=== PATIENT | female | born 1995 | race Caucasian/White ===

== ENCOUNTER 2017-12-31 09:36 | Outpatient (CLI) | payer MEDICAID, SELFPAY ==
[2017-12-31 11:24] LABS: Absolute Basophil Count 0.01 k/cumm (0.0-0.2); Absolute Lymphocyte Count 2.05 k/cumm (1.2-3.4); Absolute Monocyte Count 0.34 k/cumm (0.11-0.7); Absolute Neutrophil Count 4.35 k/cumm (1.2-6.7); Basophils % 0.1; Eosinophils % 1.5; HCT 37.9 % (36.0-46.0); HGB 12.8 g/dL (12.0-15.5); Lymphocytes % 29.9; Mean Corp. HGB Concentration 33.8 g/dL (32.0-36.0); Mean Corpuscular Hemoglobin 29.4 pg (27.0-33.0); Mean Corpuscular Volume 86.9 fL (80-95); Mean Platelet Volume 10.1 fL (8.0-11.0); Neutrophils % 63.5; Platelet Count 257 x1000/uL (130-400); RBC 4.36 m/cumm (4.00-5.20); RBC Distribution Width 12.5 % (11.7-14.6); White Blood Cell Count 6.85 k/cumm (4.4-10.8)
[2017-12-31 11:26] LABS: ALT 14 U/L (12-78); AST 10 U/L (15-37); Albumin 3.6 g/dL (3.4-5.0); Alkaline Phosphatase 87 U/L (46-116); Anion Gap 8.9 mmol/L (3-11); BUN 16 mg/dL (7-18); Bilirubin, Total 0.3 mg/dL (0.2-1.0); CO2 27.1 mmol/L (21.0-32.0); Chloride 103 mmol/L (98-107); Glucose 98 mg/dL (70-100); Potassium 4.3 mmol/L (3.5-5.1); Sodium 139 mmol/L (136-145); Total Protein 7.4 g/dL (6.4-8.2)
== END 2017-12-31 09:56 ==
PROVIDERS: PCP Family Medicine
DX: M54.5 Low back pain (principal); K21.9 Gastro-esophageal reflux disease without esophagitis; N23 Unspecified renal colic
CPT/HCPCS: 36415; 80053; 85025

== ENCOUNTER 2018-01-05 14:07 | Outpatient (CLI) | payer MEDICAID, SELFPAY ==
--- NOTE | 2018-01-05 15:48 | DI.US_ITS ---
SYMPTOM/DIAGNOSIS: INCREASED INTENSITY OF FLANK PAIN R10.9, 689.29 RENAL ULTRASOUND: Routine examination. Comparison 04/13/13. The right kidney measures 13.3 cm long. No renal masses, calculus or obstruction seen. There is blood flow to the right kidney. The left kidney measures 9.8 cm long. There does appear to be a renal cortical thinning. There are a few echogenic shadowing foci seen within the left kidney. The largest is in the superior left kidney and measures 1.4 cm. There is blood flow seen to the left kidney. No hydronephrosis or solid renal masses present. The pre-void urinary bladder volume is 100 cc. Both ureteral jets were visualized. The bladder wall appears smooth. No intraluminal masses are present. The patient completely emptied upon voiding. IMPRESSION: Echogenic foci seen within the left kidney suspicious for a nonobstructing left renal calculi 2. Mild left renal cortical atrophy.
== END 2018-01-05 14:27 ==
PROVIDERS: PCP Family Medicine
DX: R10.32 Left lower quadrant pain (principal); N20.0 Calculus of kidney
CPT/HCPCS: 76770

== ENCOUNTER 2021-04-23 19:00 | Outpatient (CLI) | payer MEDICAID, SELFPAY ==
--- NOTE | 2021-04-23 | DI.RAD_ITS ---
Exam(s) XR KNEE LT 3V AP,LAT,KRIS EXAM: XR KNEE LT 3V AP,LAT,KRIS CLINICAL HISTORY: KNEE PAIN LEFT TECHNIQUE: COMPARISON: CR RIGHT KNEE 3 VIEWS from 10/31/2013 FINDINGS: Three views were obtained. There is no evidence of acute fracture or dislocation. IMPRESSION: RADIATION DOSE DELIVERED: Total DLP
--- NOTE | 2021-04-23 20:08 | DI.VRAD_ITS ---
PROCEDURE INFORMATION: Exam: XR Left Knee Exam date and time: 04/23/2021 6:58 PM Age: 25 years old Clinical indication: Left; Patient HX: Knee pain after twisting TECHNIQUE: Imaging protocol: XR Left knee. Views: 3 views. Total images: 3 COMPARISON: No relevant prior studies available. FINDINGS: Bones/joints: No acute fracture or malalignment. Soft tissues: Normal. Other findings: There is a suprapatellar knee effusion. IMPRESSION: 1. No acute fracture or malalignment. 2. Small knee effusion. Dictated and Authenticated by: Rashi Barrios MD. Ordering:KIARA HOLLY MD
== END 2021-04-23 19:20 ==
PROVIDERS: PCP Nurse Practitioner; Visit Provider Nurse Practitioner Family
DX: M25.562 Pain in left knee (principal)
CPT/HCPCS: 73562

== ENCOUNTER 2021-12-17 18:21 | Outpatient (REF) | payer MEDICAID, SELFPAY | END 2021-12-17 18:22 | disposition home or self-care (01) | LOC: LBN 18:21 | PROVIDERS: PCP Nurse Practitioner; Visit Provider Nurse Practitioner Family | DX: J02.9 Acute pharyngitis, unspecified (principal) | CPT/HCPCS: 87070 ==

== ENCOUNTER 2023-11-13 08:36 | Emergency (ER) | payer MEDICAID, SELFPAY ==
[2023-11-13 08:56] VITALS: BP 143/98; PULSE 82; RESP 18; TEMP 36.7; O2SAT 99
--- NOTE | 2023-11-13 09:00 | DI.US_ITS ---
Exam(s) US ABDOMEN LIMITED EXAM: US ABDOMEN LIMITED CLINICAL HISTORY: RUQ U/S - bilious vomiting 4 hrs s/p PO intake TECHNIQUE: Ultrasound abdomen performed using standard protocol. COMPARISON: US RENAL ULTRASOUND(P) from 04/13/2013 FINDINGS: Exam limited by patient body habitus. LIVER: Normal size and echogenicity. No focal liver lesions are seen. GALLBLADDER: Single 9 millimeter mobile gallstone. No evidence of wall thickening. No pericholecysti c fluid identified. ALDRIDGE'S SIGN: Negative. BILIARY SYSTEM: No intrahepatic or extrahepatic biliary ductal dilation. Right kidney: Suboptimally visualized. No gross evidence of renal calculi. No evidence of hydronephr osis. No renal mass or cyst identified. PANCREAS: Normal where visualized. Partially obscured. SPLEEN: Not enlarged. ABDOMINAL AORTA AND IVC: Visualized portions normal caliber. ASCITES: None seen. IMPRESSION: 9 millimeter mobile gallstone. No evidence of acute cholecystitis. No biliary dilatation. DATA REPOSITORY:
[2023-11-13 09:22] LABS: Abs Immature Grans 0.02 10^3/uL (0.0-0.06); Absolute Basophil Count 0.01 10^3/uL (0.0-0.2); Absolute Eosinophil Count 0.19 10^3/uL (0.0-0.7); Absolute Lymphocyte Count 1.89 10^3/uL (1.2-3.4); Absolute Monocyte Count 0.28 10^3/uL (0.1-0.8); Absolute Neutrophil Count 5.58 10^3/uL (1.2-6.7); Basophils % 0.1 %; Eosinophils % 2.4 %; HCT 36.8 % (36.0-46.0); HGB 12.4 g/dL (11.2-15.7); Immature Grans % 0.3 %; Lymphocytes % 23.7 %; MCH 29.4 pg (27.0-33.0); MCHC 33.7 % (32.0-36.0); MCV 87 fL (80-95); MPV 9.4 fL (8.0-11.0); Monocytes % 3.5 %; Platelet Count 232 10^3/uL (130-400); RBC 4.22 10^6/uL (3.93-5.22); RDW 12.8 % (11.7-14.6); RDW-SD 40.5 fL; WBC 7.97 10^3/uL (4.4-10.8)
[2023-11-13 09:33] VITALS: TEMP 36.5
--- NOTE | 2023-11-13 09:36 | W.ED.GENAD ---
Discharge Plan Disposition Patient Disposition: Home Condition: Stable Discharge Details Clinical Impression: Gastritis, Biliary colic Primary Care Provider: Tarun Valdez ED Provider: Bronson Montgomery Home Meds and New Rx's Prescriptions: New ondansetron 4 mg tablet,disintegrating 4 mg PO Q8H PRN PRNQty: 30 0RF No Action ParaGard T 380A 380 square mm intrauterine device 1 device intrauterine ONCE Rx Instructions: as a single dose Discharge Instructions Instructions: Ondansetron, Gastritis ED, Gallstones ED Additional Instructions: You were seen in the emergency department for your ongoing acute on chronic biliary colic with some isolated dry heaving or vomiting, there is a 9 mm gallstone that is mobile in your gallbladder that may be transiently obstructing the gallbladder but your labs are normal for any acute infection or damage. I am referring you to the surgery practice to discuss elective gallbladder removal, you have known chronic GERD, please take an [id number] famotidine 1 tablet twice per day for about 2 to 4 weeks for a trial of relief, you may need to talk to the surgery practice about scheduling an endoscopy as well. Please return to the emergency department for any intractable nausea or vomiting, severe increase in right upper quadrant abdominal pain especially with fever, weakness. Referrals: [facility] [Provider Group] Tarun Valdez, MEDICAL REFERRAL COORDINATOR [Primary Care Provider] - Discharge Data Discharge Date/Time-TO BE ENTERED AT DEPARTURE: 11/13/23 10:37 HPI General Date/Time Provider Initiated Documentation: 11/13/23 09:00. HPI Narrative: 27 year-old female presents to ED today by POV/ambulating with her with a chief complaint of abdominal pain, intermittent nausea/dry heaving/vomiting about 4 hours after PO intake, and chronic GERD for 9 years. States the intermittent vomiting has been worse for the past 2 weeks. Quality described as no abdominal pain, just feels nauseous and having reflux after meals and occasional vomiting hours after eating, no radiation to black/bloody stools, chest pain, shortness of breath, hematemesis, intractable nausea/vomiting, fever. Severity is described as mild to moderate. Palliating factors include takes TUMS. Provoking factors include eating. Events leading up to the incident/Associated Symptoms: Patient has not sought PCP care for this, no famotidine or PPIs, not sought EGD. Patient not anticoagulated. Related Data Home Medications ?Medication ?Instructions ?Recorded ?Confirmed copper 380 square mm intrauterine 1 device intrauterine ONCE 11/13/23 11/13/23 device (ParaGard T 380A) ondansetron 4 mg disintegrating 4 mg PO Q8H PRN PRN #30 tabs 11/13/23 tablet Previous Rx's ?Medication ?Instructions ?Recorded ondansetron 4 mg disintegrating 4 mg PO Q8H PRN PRN #30 tabs 11/13/23 tablet Allergies Allergy/AdvReac Type Severity Reaction Status Date / Time ciprofloxacin (From Cipro) Allergy Mild Itching Verified 11/13/23 08:58 Sulfa (Sulfonamide AdvReac Mild Vomiting Verified 11/13/23 08:58 Antibiotics) General Stated Complaint: Abd Prob MONTRELL: 4 Review of Systems All systems reviewed & are unremarkable except as noted in HPI and below Exam Narrative Exam Narrative: GENERAL APPEARANCE: Well-nourished, non-toxic, awake and alert, atraumatic, no acute distress. SKIN: Warm, pink, dry, intact, without rashes/lesions/ulcerations. HEAD: Normocephalic, atraumatic, normal hair distribution for gender/age. EYES: Normal conjunctiva, no exudates on lids/lashes. ENT: Nares patent, no circumoral cyanosis, no facial swelling NECK: Supple, trachea midline, painless cervical ROM. LUNGS/CHEST: Lungs CTA bilaterally, non-labored respirations, normal A/P diameter, symmetrical expansion, no chest wall deformity HEART (CV/PV): Regular rate and rhythm without murmur, no peripheral edema, no JVD. ABDOMEN: Soft, non-distended, no guarding. MSK: Normal ROM, no swelling/deformity to bilateral UEs or LEs, moving all extremities without weakness, no cyanosis, spine midline without tenderness, normal curvature. NEURO: Mental Status AAOx4 - alert to person, place, time, events No facial droop, no forehead involvement. Motor: No focal weakness - strength 5/5 in bilateral UEs and LEs, proximal and distal, symmetric. Sensory: sensation intact to light touch globally. Gait normal: patient ambulated without ataxia into ED room. PSYCH: euthymic, cooperative, pleasant, appropriate speech Course Vital Signs Vital signs: Vital Signs Temperature 36.7 C 11/13/23 08:56 Pulse 82 09/12/24 08:56 Respiratory Rate 18 11/13/23 08:56 Blood Pressure 143/98 H 11/13/23 08:56 Pulse Oximetry 99 11/13/23 08:56 Temperature 36.7 C 11/13/23 08:56 Temperature Source Oral 11/13/23 08:56 Pulse 82 11/13/23 08:56 Respiratory Rate 18 11/13/23 08:56 Blood Pressure 143/98 H 11/13/23 08:56 Blood Pressure Position Sitting 11/13/23 08:56 Pulse Oximetry 99 11/13/23 08:56 Oxygen Delivery Method Room Air 11/13/23 08:56 Oxygen Flow Rate 0 11/13/23 08:56 Pain Level 0 11/13/23 08:56 Lab/Test Results Lab/Test Results: Laboratory Tests Range/Units 11/13/23 09:12 WBC (4.4-10.8) 10^3/uL 7.97 RBC (3.93-5.22) 10^6/uL 4.22 Hgb (11.2-15.7) g/dL 12.4 Hct (36.0-46.0) % 36.8 MCV (80-95) fL 87 MCH (27.0-33.0) pg 29.4 MCHC (32.0-36.0) % 33.7 RDW (11.7-14.6) % 12.8 Plt Count (130-400) 10^3/uL 232 MPV (8.0-11.0) fL 9.4 Immature Gran % % 0.3 Neutrophils % % 70.0 Lymphocytes % % 23.7 Monocytes % % 3.5 Eosinophils % % 2.4 Basophils % % 0.1 Nucleated RBC % (0.0-0.3) % 0.0 Absolute Neutrophils (1.2-6.7) 10^3/uL 5.58 Absolute Lymphocytes (1.2-3.4) 10^3/uL 1.89 Absolute Monocytes (0.1-0.8) 10^3/uL 0.28 Absolute Eosinophils (0.0-0.7) 10^3/uL 0.19 Absolute Basophils (0.0-0.2) 10^3/uL 0.01 Medical Decision Making This dictation utilizes [id number] dictation software and may contain unedited grammatical errors. 27 year-old female presents to ED today by POV/ambulating with her with a chief complaint of abdominal pain, intermittent nausea/dry heaving/vomiting about 4 hours after PO intake, and chronic GERD for 9 years. States the intermittent vomiting has been worse for the past 2 weeks. Quality described as no abdominal pain, just feels nauseous and having reflux after meals and occasional vomiting hours after eating, no radiation to black/bloody stools, chest pain, shortness of breath, hematemesis, intractable nausea/vomiting, fever. Severity is described as mild to moderate. Palliating factors include takes TUMS. Provoking factors include eating. Events leading up to the incident/Associated Symptoms: Patient has not sought PCP care for this, no famotidine or PPIs, not sought EGD. Patients' medical history: GERD. Family and social history: noncontributory. Pertinent exam findings / vital signs include no abdominal tenderness, nontoxic vitals, benign cardiopulmonary status. Differential / pathologies of concern include gastritis, biliary colic, gallstones, PUD. Diagnostic studies of: -CBC, CMP, lipase, US ABD right upper quadrant laboratory workup is negative. -laboratory work up negative (See below) -US ABD RUQ shows 9mm gallstone, possible intermittent colic source Interventions of: -Given prescription of ondansetron, recommend outpatient follow-up with general surgery practice for possible EGD or elective cholecystectomy, recommend OTC famotidine for GERD. ED Course/Assessment/Plan: 27-year-old female presents with 9 years of GERD, states intermittent dry heaves that seem to be worse for the past 2 weeks, this is suspicious for gallstone pathology so an ultrasound was performed which shows a 9 mm mobile gallstone, this is not likely occluding the biliary duct at this time and I do recommend she follow-up with general surgery for discussion of elective cholecystectomy if she keeps having symptoms, recommend she trial famotidine for her GERD as she has not tried any H2 dara or PPI despite the length of illness, provided ondansetron for intermittent nausea as needed, strict turn criteria for worsening abdominal pain with fever, intractable nausea or vomiting. Findings not consistent with choledocholithiasis, cholangiitis, cholecystitis, booerhave syndrome, kiana anderson tear, intractable nausea/vomiting. Disposition of Gastritis, Biliary Colic. Patient verbalized understanding of the plan and return to ED criteria and engaged in shared decision making. Medical Records Medical records reviewed: Yes I reviewed the patient's medical records. Imaging Data Radiologic Study: Attestation: I personally reviewed and interpreted this imaging study as follows: Imaging: Ultrasound Radiologist's impression: EXAM: US ABDOMEN LIMITED CLINICAL HISTORY: RUQ U/S - bilious vomiting 4 hrs s/p PO intake TECHNIQUE: Ultrasound abdomen performed using standard protocol. COMPARISON: US RENAL ULTRASOUND(P) from 04/13/2013 FINDINGS: Exam limited by patient body habitus. LIVER: Normal size and echogenicity. No focal liver lesions are seen. GALLBLADDER: Single 9 millimeter mobile gallstone. No evidence of wall thickening. No pericholecystic fluid identified. ALDRIDGE'S SIGN: Negative. BILIARY SYSTEM: No intrahepatic or extrahepatic biliary ductal dilation. Right kidney: Suboptimally visualized. No gross evidence of renal calculi. No evidence of hydronephrosis. No renal mass or cyst identified. PANCREAS: Normal where visualized. Partially obscured. SPLEEN: Not enlarged. ABDOMINAL AORTA AND IVC: Visualized portions normal caliber. ASCITES: None seen. IMPRESSION: 9 millimeter mobile gallstone. No evidence of acute cholecystitis. No biliary dilatation. Lab Data Lab results reviewed: Yes I reviewed the patient's lab results. Labs: Laboratory Tests Range/Units 11/13/23 09:12 WBC (4.4-10.8) 10^3/uL 7.97 RBC (3.93-5.22) 10^6/uL 4.22 Hgb (11.2-15.7) g/dL 12.4 Hct (36.0-46.0) % 36.8 MCV (80-95) fL 87 MCH (27.0-33.0) pg 29.4 MCHC (32.0-36.0) % 33.7 RDW (11.7-14.6) % 12.8 Plt Count (130-400) 10^3/uL 232 MPV (8.0-11.0) fL 9.4 Immature Gran % % 0.3 Neutrophils % % 70.0 Lymphocytes % % 23.7 Monocytes % % 3.5 Eosinophils % % 2.4 Basophils % % 0.1 Nucleated RBC % (0.0-0.3) % 0.0 Absolute Neutrophils (1.2-6.7) 10^3/uL 5.58 Absolute Lymphocytes (1.2-3.4) 10^3/uL 1.89 Absolute Monocytes (0.1-0.8) 10^3/uL 0.28 Absolute Eosinophils (0.0-0.7) 10^3/uL 0.19 Absolute Basophils (0.0-0.2) 10^3/uL 0.01 Sodium (136-145) mmol/L 138 Potassium (3.5-5.1) mmol/L 3.8 Chloride (98-107) mmol/L 105 Carbon Dioxide (21.0-32.0) mmol/L 26.4 Anion Gap (3-11) mmol/L 6.6 BUN (7-18) mg/dL 15 Creatinine (0.55-1.02) mg/dL 0.9 Est GFR (CKD-EPI 2020) (mL/min/1.73m2) 88.75 Glucose (74-106) mg/dL 123 H Calcium (8.5-10.1) mg/dL 9.1 Magnesium (1.8-2.4) mg/dL 1.8 Total Bilirubin (0.2-1.0) mg/dL 0.34 AST (15-37) U/L 11 L ALT (14-59) U/L 17 Alkaline Phosphatase (46-116) U/L 83 Total Protein (6.4-8.2) g/dL 7.5 Albumin (3.4-5.0) g/dL 3.5 Lipase (16-77) U/L 43 Quality:SDOH Health Related Social Needs: No Data to Display PFSH All Active Problems (Updated 11/13/23 @ 10:20 by LAZARUS Morgan) Biliary colic (Acute) Gastritis (Acute) (Acute) Acne (Chronic) Increased body mass index (BMI) (Chronic) History of asthma (Acute) GERD (gastroesophageal reflux disease) (Chronic) Flank pain, chronic (Chronic) Vesicoureteral reflux, unspecified or without reflux nephropathy (Acute 05/20/11) Family History Mother Asthma Depression Father , 41 Lymphoma Hypertension Brother Asthma Depression Substance abuse Maternal Grandfather , 80 Lung cancer Depression Heart disease Alcohol abuse Paternal Grandfather Hypertension Maternal Grandmother , 81 Alcohol abuse Depression Stroke Paternal Grandmother , 56 Alcohol abuse Depression Daughter No problems noted. Other History of asthma Social History Smoking/Tobacco Use Status: Former Tobacco Use Quit Date: 12/01/13 Second Hand Exposure: Yes Smoking risk assessment performed?: Yes Alcohol Intake: current Alcohol Intake frequency: holidays/special occasions only Alcohol type: wine and hard liquor Drug use: Never Substance use type: does not use Household members: significant other, family and children Housing: house Pets and animals: Yes Pets and animals: cat(s) and dog(s) Sexually active: Yes Do you think of yourself as: straight/heterosexual Current gender identity: female What is your relationship status?: How often do you talk on the phone with friends or family?: three or more times per week How often do you get together with friends or relatives?: twice per week How often do you attend baptism or advent services?: decline to answer Do you belong to any clubs or organized social groups?: no Panel score (0-1 are the most socially isolated patients): 2 What type of physical activity do you participate in: yoga Duration: 45-60 minutes/day Frequency: 3-4 times per week Yaa/Druze: None Special yaa needs: No Do you feel safe at home: Yes Do you feel safe in your relationship?: Yes
[2023-11-13 09:41] LABS: ALT 17 U/L (14-59); AST 11 U/L (15-37); Albumin 3.5 g/dL (3.4-5.0); Alkaline Phosphatase 83 U/L (46-116); Anion Gap 6.6 mmol/L (3-11); BUN 15 mg/dL (7-18); Bilirubin, Total 0.34 mg/dL (0.2-1.0); CO2 26.4 mmol/L (21.0-32.0); CREATININE 0.9 mg/dL (0.55-1.02); Calcium 9.1 mg/dL (8.5-10.1); Chloride 105 mmol/L (98-107); Estimated GFR 88.75 (mL/min/1.73m2); Glucose 123 mg/dL (74-106); Lipase 43 U/L (16-77); Magnesium 1.8 mg/dL (1.8-2.4); Potassium 3.8 mmol/L (3.5-5.1); Sodium 138 mmol/L (136-145); Total Protein 7.5 g/dL (6.4-8.2)
== END 2023-11-13 10:37 | disposition home or self-care (01) ==
PROVIDERS: Emergency Provider Physician Assistant; PCP Nurse Practitioner Family
DX: K29.70 Gastritis, unspecified, without bleeding (principal); K80.50 Calculus of bile duct without cholangitis or cholecystitis without obstruction
CPT/HCPCS: 36415; 80053; 83690; 99284; 76705; 83735; 85025; 99283

== ENCOUNTER 2024-01-16 11:08 | Day surgery (SDC) | payer OTHER, SELFPAY ==
--- NOTE | 2024-01-15 20:41 | W.PM.ENDDOP ---
Date of service: 01/16/24 Time of Service: 13:11 Endoscopy Report DATE OF PROCEDURE: 01/16/24 PRE-OP DIAGNOSIS: GERD POST-OP DIAGNOSIS: same SURGEON: Kasia William ANESTHESIA TYPE: General:No Airway ESTIMATED BLOOD LOSS: 1 PATHOLOGY: other COMPLICATIONS: None DISPOSITION: same day PREP: Miralax/Dulcolax PROCEDURE DESCRIPTION: Informed consent was obtained from the pt; explaining the benefits and Risks: bleeding, infections, perforations {which could require surgery or antibiotics and prolonged hospital stay}, or ostomy, and complications of anaesthesia, mary aspiration). The patient was take to the procedure room and placed in a supine position. Monitors were applied and a time out was done. The patients name, date of , procedure type, allergies to medications and metal in their body was reviewed. A bite block was placed and the patient was sedated. Once sedated and comfortable an Olympus gastroscope (see RN notes for scope #) was advanced through the oropharynx which was grossly normal, and passed into the esophagus. The proximal and mid-esophagus were normal. The distal esophagus does not show any: dilation/strictures/varices/erosions or ulcers/bleeding noted. The scope was advanced into the stomach and through the pylorus into the proximal jejunum. A bx is taken for celiac Dx . The duodenum was noted to be normal. Biopsies were done of the duodenal bulb.. The scope was retracted back into the stomach and biopsies were taken of the antrum. There were no gastritis/gastropathy/ ulcers/masses noted. The scope was retroflexed. In the upper half of the stomach, there is a diffuse florid peppering of the mucosa with punctate erythema. There is no underlying gastritis. It almost looks hemorrhagic. But I do not think this is true hemorrhage. And I do not have an etiology for this. Biopsies are taken. There is no hiatal hernia noted. The scope was retracted back into the esophagus and biopsies were done of the GE junction (in all 4 quadrants) and distal esophagus (2cm above the GE junction) to rule out Connor's. All specimens are retrieved and no bleeding was noted. The Z line was regular. The GE junction was at 38 cm. The scope was removed and the patient was woken up and taken back to [facility] in stable condition.
--- NOTE | 2024-01-15 20:49 | PDOC.DSDIS_ITS ---
Date of service: 01/16/24 Time of Service: 13:13 Discharge Plan Disposition Patient Disposition: Home Condition: Good Discharge Details Reason For Visit: egd scope Attending Provider: Kasia William Primary Care Provider: Tarun Valdez Home Meds and New Rx's Prescriptions: No Action ferrous sulfate 325 mg (65 mg iron) tablet,delayed release (DR/EC) 325 mg PO BID multivitamin [One Daily Multivitamin] Tablet 1 tab PO DAILY pantoprazole [Protonix] 40 mg tablet,delayed release (DR/EC) 40 mg PO DAILY Qty: 30 12RF ParaGard T 380A 380 square mm intrauterine device 1 device intrauterine ONCE Rx Instructions: as a single dose Discharge Instructions Additional Instructions: Post EGD Instruction ?You had anesthesia for your EGD/stomach scope today.? For your safety, please do the following for the next twenty-four (24) hours: Do Not operate a motor vehicle (car, truck, motorcycle, etc.) Do Not drink alcoholic beverages or use any recreational drugs for the first 24 hours or while taking pain medications. The medications in your body may have a reaction that can be dangerous. Do Not make any important decisions or sign any important papers You have just had a gastroscopy (EGD) or upper GI tract examination. It is important for your smooth recovery that you carefully follow the recommendations below. Do not hesitate to call if any questions should arise about your anesthesia, condition, or care. -Symptoms you may experience during the next 24 hours: ?1. Mild abdominal pain or excessive gas or a bloated feeling which improves with rest, liquids, eating? slightly, and walking as tolerated. 2. Drowsiness and/or forgetfulness because of the medications you were given. 3. A sore throat which you can treat with throat lozenges or by gargling with salt water 4-5 times a day. 4. Redness at the site of your IV which you can treat with warm compresses. SPECIAL INSTRUCTIONS: 1. You may resume your previous diet in one hour. We recommend a light meal to start, then progress as tolerated. 2. Restart regular medications in one hour. 3. No aspirin or non-steroidal containing medication for 24 hrs. 4. No lifting over 20 pounds or strenuous activity for the first 24 hours after your procedure. After 24 hours there are no restrictions on your activity, but you may feel fatigued for a few days. -Findings: Mild irritation in the upper portion of the stomach -Medications: Continue Protonix and lifestyle modification -Continue to follow lifestyle modifications: No alcohol, tobacco products, Aspirin or NSAID's (ibuprofen, Motrin, Naprosyn, aleve, etc).? Try to limit/avoid:? soda pop/any carbonated beverages, caffeine (including tea & chocolate), and acidic foods, (tomatoes, citrus, onions, peppermints) spicy or fried/fatty foods. Do not lie down for 30 minutes after eating, and do not eat 2 hours prior to bedtime. Avoid wearing tight fitting clothing/ belts. Follow up: -My office will send a letter with the results of your biopsy?s in 2-3wks time. Call the office at [phone] (Office) or [phone] (Hospital), or go to the ER right away if you notice any of the followin. Vomiting blood and /or ?coffee ground? material. ?2. Worsening of abdominal pain or cramping. ?3. Trouble with breathing, cough, and/or fever (temperature above 101.5 F). 4. Increasing pain with swallowing. ?5. Chest pain. 6. Any new symptoms. 7. Worsening of the redness at the IV site Stand Alone Forms: Anesthesia Discharge InstOlga Ramos (DSU) Activity:: see above Diet:: see above Discharge Orders Discharge Orders: Discharge Order (Routine); Ordered 01/16/24 Ordered By: Kasia William DS: Diagnosis Discharge Diagnosis (1) Increased body mass index (BMI): Status: Chronic (2) GERD (gastroesophageal reflux disease): Status: Chronic Asessment and Plan: Patient is seen and examined after they are endoscopy.? Patient has minimal sore throat.? They have been able to tolerate liquids.? They do not have any nausea vomiting.? They are not having any chest pain or shortness of breath.? They have been able to pass gas and are not having any abdominal pain or distention.? They have not vomited any blood.? The vital signs have been stable-see nursing notes. We discussed findings on their endoscopy. We reviewed the importance of lifestyle modification-see discharge instructions We reviewed any new medications that the patient may be prescribed-see discharge instructions Patient will either be sent a letter with the biopsy results or follow-up in the office-see discharge instructions. Patient was given explicit instructions to follow-up regarding post endoscopy- refer to discharge Patient verbalized understanding and discharged in stable and satisfactory condition.? See nursing notes. (3) Gallstones: Status: Acute (4) History of asthma: Status: Acute
[2024-01-16 11:23] VITALS: BP 140/90; PULSE 85; RESP 16; TEMP 36.6; O2SAT 98
[2024-01-16] MEDS: Normal Saline Flush 10 ML SYR IV (11:45)
--- NOTE | 2024-01-16 12:18 | ANES.PREOP_ITS ---
General Info Date of Service Date Performed: 01/16/24 Height: 5 ft 9 in Weight: 119.5 kg Body Mass Index (BMI): 38.9 Surgical Procedure: Operation Date: 01/16/24 11:50 Proposed Procedure Side Surgeon p Gastroscopy Kasia William, Meds Allergies and Home Medications Allergies Allergy/AdvReac Type Severity Reaction Status Date / Time ciprofloxacin (From Cipro) Allergy Mild Itching Verified 01/14/24 13:02 Sulfa (Sulfonamide AdvReac Mild Vomiting Verified 01/14/24 13:02 Antibiotics) Home Medication ?Medication ?Instructions ?Recorded copper 380 square mm intrauterine 1 device intrauterine ONCE 11/13/23 device (ParaGard T 380A) ferrous sulfate 325 mg (65 mg 325 mg PO BID 01/01/24 iron) tablet,delayed release multivitamin (One Daily 1 tab PO DAILY 01/01/24 Multivitamin tablet) pantoprazole 40 mg tablet,delayed 40 mg PO DAILY #30 tabs 01/01/24 release (Protonix) Current Visit Medications: Current Medications Generic Name Dose Route Start Last Admin Trade Name Nickolasq PRN Reason Stop Dose Admin Hyoscyamine Sulfate 0.125 mg 01/16/24 08:40 Hyoscyamine 0.125 Mg Sl/Oral/Chew SL 02/15/24 08:39 DIRECTED PRN IV Miscellaneous Supplies 1 each 01/16/24 06:00 Iv Access IV 01/16/24 23:59 DIRECTED GABINO Ondansetron HCl 4 mg 01/16/24 08:40 Ondansetron 4 Mg/2 Ml Vial IVP 02/15/24 08:39 Q4H PRN PRN Nausea / Vomiting Sodium Chloride 0 ml 01/16/24 06:00 01/16/24 11:45 Normal Saline Flush 10 Ml Syr IV 01/16/24 23:59 10 ml PRN PRN Administration Sodium Chloride 0 ml 01/16/24 06:00 Normal Saline 10 Ml Vial IJ 01/16/24 23:59 DIRECTED PRN Sterile Water 0 ml 01/16/24 06:00 Water,Injection,Sterile 10 Ml Vial IJ 01/16/24 23:59 DIRECTED PRN PFSH Active Problems Active Problems: Problem Status Onset Code Gallstones Acute K80.20 Acute Z34.90 Acne Chronic L70.9 Increased body mass index (BMI) Chronic R63.8 History of asthma Acute GERD (gastroesophageal reflux disease) Chronic K21.9 Flank pain, chronic Chronic R10.9, G89.29 Vesicoureteral reflux, unspecified or without reflux nephropathy Acute 05/20/11 N13.70 Medical History Medical History (Updated 01/14/24 @ 13:00 by Guicho Cardenas) Renal atrophy, left Tobacco Smoking/Tobacco Use Status: Former Tobacco Use Second hand exposure: Yes Alcohol Alcohol Intake: current Alcohol intake frequency: holidays/special occasions only Alcohol type: wine and hard liquor Substance Use Substance use: Never Substance use type: does not use Vital Signs and Lab Results Vital Signs Most Recent Vital Signs in EMR: Most Recent Vital Signs Temp Pulse Resp BP Pulse Ox 36.6 C 85 16 140/90 98 01/16/24 11:23 01/16/24 11:23 01/16/24 11:23 01/16/24 11:23 01/16/24 11:23 Point of Care Results Point of Care Results: POC- Test(urine) Negative 01/16/24 11:53 Lab Results Blood Type / Crossmatch: 2 No Data to Display Complete Blood Count: 2 No Data to Display Complete Metabolic Panel: 2 No Data to Display Liver Function Panel: 2 No Data to Display Coagulation Panel: 2 No Data to Display Cardiac Panel: 2 No Data to Display Arterial Blood Gas: 2 No Data to Display Venous Blood Gas: 2 No Data to Display Pancreas Panel: 2 No Data to Display Thyroid Panel: 2 No Data to Display Infectious Disease: 2 No Data to Display Blood Cultures: 2 No Data to Display Toxicology Panel: 2 No Data to Display Panel: 2 No Data to Display Anesthesia Assessment and Plan Anesthesia History Personal History: No History of General Anesthesia Family History: No Family History of Anesthesia Complications Exercise Tolerance Exercise Tolerance: Metabolic Equivalents>4 Pertinent Negatives Pertinent Negatives: No Symptoms of GERD, No Major Cardiovascular Symptoms or Complaints, No Major Pulmonary Symptoms or Complaints and No History of CVA/TIA Cardiac & Pulmonary Exam Cardiac Exam: Normal S1/S2 Heart Sounds Pulmonary Exam: Clear Bilateral Breath Sounds Implantable Cardiac Device Does patient have a Pacemaker or an ICD?: No Airway Exam Known Difficult Airway: No Previous Airway Comments:: nose ring left nares Mallampati Class: 2 Mouth Opening: Normal (> 3cm) Thyromental Distance: Greater than 3 cm Neck Range of Motion: Full ROM Neck Circumference: Normal Teeth Condition: Normal Dentition Tooth Numberin 1. chipped tooth ASA Classification ASA Score: ASA 2 Emergency Case?: No NPO Status NPO Status: NPO Clears >2 hours, Solids >8 hours Status Status: Negative HCG Anesthesia Plan Resuscitation Status: Full Code Anesthesia Technique: General Anesthesia Airway Planned: Natural Airway Monitors Used: Standard Monitors
[2024-01-16 12:32] VITALS: BMI 38.9
--- NOTE | 2024-01-16 12:40 | STOM_PTH ---
PATIENT: Mary Lou Jiménez LOC: [facility] U#:[id number] AGE/SX: 28/F ROOM: RE01/16/[address]: Kasia William : 1995 BED: DIS: 01/16/2024 SPEC #: [id number] RECD: 01/16/24 17:49 STATUS: JOSE CRUZ RENatalie #: [id number] KIA: 01/16/24 12:[address]: Kasia William DEPT: Surgical Specimen RECD BY: Peggy Birch ENTERED: 01/16/24 17:51 SP TYPE: STOMACH OTHR DR: Tarun Garcia, SASCHA Tissues: 1 - BIOPSY BOWEL 2 - BIOPSY BOWEL 3 - STOMACH BIOPSY 4 - STOMACH BIOPSY 5 - STOMACH BIOPSY 6 - ESOPHAGUS BIOPSY 7 - ESOPHAGUS BIOPSY Procedures: GROSS AND MICRO LEVEL 4 IMMUNOPEROXIDASE STAIN Comments: [id number]
[2024-01-16 13:03] VITALS: BP 126/70; PULSE 98; RESP 16; TEMP 36.6; O2SAT 96
[2024-01-16 13:33] VITALS: BP 125/80; PULSE 90; RESP 16; TEMP 36.7; O2SAT 99
--- NOTE | 2024-01-16 15:31 | W.ANESPOSTOP ---
Postoperative Evaluation Date, Time and Location Date Performed: 01/16/24 Time Performed: 13:10 Patient Location: Day Surgery Unit Vital Signs Most Recent Imported Vital Signs: Most Recent Vital Signs Temp Pulse Resp BP Pulse Ox 36.7 C 90 16 125/80 99 01/16/24 13:33 01/16/24 13:33 01/16/24 13:33 01/16/24 13:33 01/16/24 13:33 Pain Score Most Recent Pain Score: Most Recent Pain Score Pain Level 0 01/16/24 13:33 Assessment Mental Status: Awake (Alert & Oriented to Patient Baseline) Airway and Respiratory Function: Patent airway with normal (patient baseline) respiratory exam Cardiovascular Function: Hemodynamically Stable Hydration Status: Adequately Hydrated Nausea & Vomiting: No Nausea or Vomiting Pain: Pt. Denies Any Pain Peripheral Nerve Block: Patient did not receive a nerve block
== END 2024-01-16 14:15 | disposition home or self-care (01) ==
LOC: SUR 11:08
PROVIDERS: PCP Nurse Practitioner Family; Visit Provider Surgery
PROC: 0DJ68ZZ Inspection of Stomach, Via Natural or Artificial Opening Endoscopic (ICD-10-PCS; CPT 43235; principal; 2024-01-16 11:45)
DX: K21.9 Gastro-esophageal reflux disease without esophagitis; K22.89 Other specified disease of esophagus; K31.89 Other diseases of stomach and duodenum; K29.70 Gastritis, unspecified, without bleeding; B96.81 Helicobacter pylori [H. pylori] as the cause of diseases classified elsewhere
CPT/HCPCS: 43239; 81025; 88305; 88361; J2003; J2704

== ENCOUNTER 2025-01-19 10:06 | Outpatient (CLI) | payer OTHER, SELFPAY ==
[2025-01-19 14:15] LABS: ALT 16 U/L (10-49); AST 15 U/L (<34); Albumin 4.7 g/dL (3.4-5.0); Alkaline Phosphatase 82 U/L (46-116); Anion Gap 7.1 mmol/L (3-11); BUN 12 mg/dL (9-23); Bilirubin, Total 0.40 mg/dL (0.2-1.2); CO2 28.9 mmol/L (20.0-31.0); Calcium 9.6 mg/dL (8.3-10.6); Chloride 104 mmol/L (98-107); Cholesterol 233 mg/dL (<200); Glucose 101 mg/dL (74-106); HDL Cholesterol 45 mg/dL (>40); Potassium 3.7 mmol/L (3.5-5.1); Sodium 140 mmol/L (136-145); Total Protein 8.0 g/dL (5.7-8.2)
[2025-01-19 14:16] LABS: TSH (W/Ref FT4) 0.45 uIU/mL (0.55-4.78); Vitamin D 25 Total 21 ng/mL (30-100)
[2025-01-19 14:23] LABS: Hemoglobin A1C 5.3 % (<5.7)
[2025-01-20 19:17] LABS: HIV-1/2 Ag & Ab Screen Negative (Negative)
[2025-01-20 19:21] LABS: Hepatitis C Ab w Rflx HCV PCR Negative (Negative)
== END 2025-01-19 10:07 | disposition home or self-care (01) ==
LOC: LOS 10:07
PROVIDERS: PCP Family Medicine; Visit Provider Family Medicine
DX: E03.9 Hypothyroidism, unspecified (principal); F41.9 Anxiety disorder, unspecified; Z00.00 Encounter for general adult medical examination without abnormal findings; R73.01 Impaired fasting glucose; E66.812 Obesity, class 2; Z13.6 Encounter for screening for cardiovascular disorders; Z11.4 Encounter for screening for human immunodeficiency virus [HIV]
CPT/HCPCS: 36415; 80053; 80061; 82306; 86803; 87389; 83036; 84439; 84443

== ENCOUNTER 2025-01-24 20:12 | Outpatient (REF) | payer OTHER, SELFPAY ==
[2025-01-26 10:24] LABS: HSV 1 DNA Result Negative (Negative); HSV 2 DNA Result Negative (Negative)
[2025-01-26 12:30] LABS: Bacterial Vaginosis (BV) Negative (Negative); Candida glabrata Negative (Negative); Candida species group Negative (Negative); Chlamydia Result Negative (Negative); GC Result Negative (Negative)
== END 2025-01-24 20:13 | disposition home or self-care (01) ==
LOC: LBN 20:12
PROVIDERS: PCP Family Medicine; Visit Provider Nurse Practitioner Acute Care
DX: N89.8 Other specified noninflammatory disorders of vagina (principal)
CPT/HCPCS: 81513; 87481; 87491; 87529; 87591; 87661; 86695; 86696

== ENCOUNTER 2025-01-25 09:55 | Outpatient (REF) | payer OTHER, SELFPAY ==
[2025-01-31 15:00] LABS: Helicobacter pylori Ag, Feces Negative (Negative)
== END 2025-01-25 09:56 | disposition home or self-care (01) ==
LOC: LBN 09:55
PROVIDERS: PCP Family Medicine; Visit Provider Family Medicine
DX: Z86.19 Personal history of other infectious and parasitic diseases (principal)
CPT/HCPCS: 87338